=== PATIENT | male | born 1970 | race Caucasian/White ===

== ENCOUNTER 2019-07-26 09:42 | Outpatient (CLI) | payer BC, SELFPAY ==
--- NOTE | 2019-07-26 10:02 | CT_ITS ---
WS: [id number] CT HEAD NONCONTRAST HISTORY: HEADACHE W/SEXUAL ACTIVITY TECHNIQUE: Contiguous axial imaging performed through the brain in 2.5 mm imaging. Bone and soft tiss ue windows. Sagittal and coronal reformats reviewed. All CT scans at [facility] use at le ast one of these dose optimization techniques: automated exposure control; mA and/or kV adjustment pe r patient size (includes targeted exams where dose is matched to clinical indication); or iterative r econstruction. DLP: 872.54 mGy.cm COMPARISON: None available. No acute intracranial hemorrhage, midline shift or mass effect. No atrophy or prior infarcts or herniation. Ventricles: Normal size with no hydrocephalus. Paranasal sinuses: 1 complete opacification of the LEFT sphenoid sinus with extension into the dye tub tender ior LEFT ethmoid air cells. There is mild expansion of the sinus and thickening of the sinus wall sug gests this could be a mucocele. There is mixed density within the opacification. Mastoid air cells: Well pneumatized. Calvarium and scalp: Skull is intact with no soft tissue edema or swelling. Sclerosis and thickening of the posterior LEFT ethmoid air cells with increased fluid and soft tissue content. Cortical thickening is encroaching and narrowing the LEFT optic canal. Suspect encroachment upon the optic nerve sheath. CT/CT head wo con* [id number] IMPRESSION: 1. No acute intracranial hemorrhage or edema. 2. LEFT sphenoid sinus opacification with extension to the posterior LEFT ethm oid air cells. Bony expansion and cortical thickening suggests mucocele. Additi onal etiologies to consider are fungal sinusitis and inspissated material. 3. Cortical thickening involving the LEFT posterior ethmoid air cells and sphe noid sinus with encroaching upon the LEFT optical canal. There may be some encr oachment and impingement upon the optic nerve sheath and surrounding structures . Suggest follow-up with ENT. MRI orbits with and without contrast may be neces jannet for additional evaluation.
== END 2019-07-26 09:43 | disposition home or self-care (01) ==
LOC: RAD 09:51
PROVIDERS: PCP Nurse Practitioner Family; Visit Provider Nurse Practitioner Family
DX: G44.82 Headache associated with sexual activity (principal)
CPT/HCPCS: 70450

== ENCOUNTER 2019-08-05 08:09 | Outpatient (CLI) | payer BC, SELFPAY ==
--- NOTE | 2019-08-05 08:00 | MR_ITS ---
WS: [id number] MRI HEAD/ORBITS with and without CONTRAST. COMPARISON: CT head 07/26/2019 Multiplanar, multisequence imaging is performed with and without contrast. No acute infarcts or diffusion-weighted abnormality within the brain. No hemorrhage. No prior infarct s. No inferior displacement of cerebellar tonsils. Abnormal opacification of the LEFT sphenoid sinus with extension into the posterior LEFT ethmoid air cells and also the body of the clivus. There is expansion of the sphenoid cavity. The posterior LEFT ethmoid air cell projects to the LEFT and is causing narrowing of the inferior optic chiasm and infer ior orbital fissure. Mild mass effect upon the inferior rectus muscle. No soft tissue extension beyon d the sinus cavity. No intracranial extension. There is peripheral enhancement but the central portio n of the sinus does not enhance. There is also mild mucoperiosteal thickening of the frontal and ethmoid air cells. No air-fluid level s in the maxillary sinuses. Slight right-sided nasal septal deviation. MR/MR head orbits wo/w* [id number] IMPRESSION: 1. Mildly expansile mass centered in the LEFT sphenoid sinus with extension to the posterior LEFT ethmoid air cell. There may be slight encroachment upon the inferior optic chiasm and orbital fissure secondary to the bone remodeling. 2. Peripheral enhancement of the soft tissue filling the sphenoid sinus. Proba edwardo chronic inspissated sinusitis. Mucocele is thought to be less likely but sh ould also be considered.
== END 2019-08-05 08:10 | disposition home or self-care (01) ==
LOC: RADSHAW 08:09
PROVIDERS: PCP Nurse Practitioner Family; Visit Provider Nurse Practitioner Family
DX: R51 Headache (principal); R22.0 Localized swelling, mass and lump, head
CPT/HCPCS: 70543; 70553; A9579

== ENCOUNTER → 2021-03-29 08:04 | Outpatient (BNVA) | payer OTHER, SELFPAY | PROVIDERS: PCP Nurse Practitioner Family; Visit Provider Nurse Practitioner Family | DX: J02.0 Streptococcal pharyngitis (principal) | CPT/HCPCS: 87880 ==

== ENCOUNTER → 2021-07-20 16:36 | Outpatient (BNVA) | payer OTHER, SELFPAY | PROVIDERS: PCP Nurse Practitioner Family; Visit Provider Nurse Practitioner Family | DX: Z20.822 Contact with and (suspected) exposure to COVID-19 (principal) | CPT/HCPCS: 87635 ==

== ENCOUNTER 2021-12-08 17:32 | Emergency (ER) | payer OTHER, SELFPAY ==
[2021-12-08 18:35] VITALS: BP 178/93; PULSE 67; RESP 12; TEMP 36.7; O2SAT 98; BMI 27.2
--- NOTE | 2021-12-08 20:01 | W.ED.HA ---
HPI - Headache General: Chief Complaint: Headache Stated Complaint: Headache for 6 days Time Seen by Provider: 12/08/21 20:01 History of Present Illness: 51-year-old male patient comes in today for complaints of headache for 5 days. Patient reports the pain starts behind both of his eyes. Patient does have a history of sinusitis recurrent. Patient has been treated with azithromycin and a gram of Rocephin from [facility] medical provider. Patient appears nontoxic. No neurodeficits are noted. Patient appears in mild to no pain at this time. Patient does report that his headache seems better since arriving to the ER. Associated symptoms: Deny chest pain, fever(s) or rash Review of Systems Const: Denies: fever(s) Eyes: Reports: eye discomfort ENMT: Reports: sinus pain Card: Denies: chest pain Resp: Denies: dyspnea Musc: Denies: neck pain Skin/Breast: Denies: rash Neuro: Reports: headache(s) PFSH ED PFSH: Medical History GERD (gastroesophageal reflux disease) HTN (hypertension), benign Surgical History Hx of discectomy Social History Smoking and tobacco status: never smoked Household members: spouse Housing: House Marital status: Physical Exam Const: COMMON NORMALS: alert HENMT: COMMON NORMALS: normocephalic HEAD & SCALP: normocephalic NOSE: Nasal discharge present THROAT: posterior oropharynx normal Neck/C-Spine: COMMON NORMALS: full ROM and no meningeal signs Resp: COMMON NORMALS: clear to auscultation bilaterally AUSCULTATION: clear to auscultation bilaterally Cardio: COMMON NORMALS: regular rate and regular rhythm RATE: regular rate RHYTHM: regular rhythm Extremity: COMMON NORMALS: normal to inspection Neuro: JONEL COMA SCALE: document GCS findings Jonel coma scale eye opening: Spontaneous Jonel coma scale verbal response: Orientated [place] coma scale motor response: Obey commands Jonel coma scale total score: 15 SENSORIUM/ORIENTATION: Yes alert MENINGEAL SIGNS: Yes no meningeal signs SPEECH: speech normal GAIT: Yes Normal gait present Skin: COMMON NORMALS: no rashes or lesions noted GENERAL SKIN EXAM: no rashes or lesions noted Course Vital Signs: Vital signs: Vital Signs Temperature 98.1 F 12/08/21 18:35 Pulse Rate 68 12/08/21 20:38 Respiratory Rate 16 12/08/21 20:38 Blood Pressure 173/99 12/08/21 20:38 Pulse Oximetry 97 12/08/21 20:38 MDM - Headache Medical Decision Making 51-year-old male patient comes in today with sinus pain and headache for about 5 days. Patient's been seen by primary care and was given a gram of Rocephin and azithromycin to follow-up. Patient was also written for a Medrol pack. Patient came in today due to persistent headache with only 2 more days of azithromycin left. On exam patient appears mildly unwell. Patient has no focal neural deficits. Patient is alert and oriented. Patient's blood pressure is elevated. Differential diagnosis includes rhinosinusitis, intracranial mass, uncontrolled blood pressure. CT of the head and sinuses indicated a moderate sinusitis. Reviewed exam with patient recommended dose of dexamethasone IM. Patient can take Medrol Dosepak if he wants but he could try the dexamethasone first and see how he tolerates it along with Flonase nasal spray. Patient should complete his antibiotics and follow-up with primary care otherwise. Patient reported understanding. Lab Data Radiology Impressions Head CT 12/08/21 20:08 IMPRESSION: No acute intracranial abnormality. Bilateral sphenoid sinusitis, which may be chronic. Sinuses CT 12/08/21 20:08 IMPRESSION: Thww-tc-[id number] sinusitis, see above. Discharge Plan Discharge Patient Disposition: Home Clinical Impression: Sinusitis, acute Condition: Stable Prescriptions: New Flonase Allergy Relief 50 mcg/actuation spray,suspension 1 spray intranasal BID Qty: 16 0RF Rx Instructions: administer into each nostril No Action methylprednisolone [Medrol (Kevan)] 4 mg tablets,dose pack 4 mg PO DAILY Qty: 21 0RF pantoprazole 40 mg tablet,delayed release (DR/EC) See Rx Instructions .ROUTE .COMPLEX Qty: 90 0RF Dose Instruction: TAKE 1 TABLET BY MOUTH DAILY Rx Instructions: TAKE 1 TABLET BY MOUTH DAILY azithromycin [Zithromax Z-Kevan] 250 mg tablet See Rx Instructions PO .COMPLEX Qty: 6 0RF Rx Instructions: For 250 mg dose pack: take 500 mg today (day 1), then 250 mg for 4 days (days 2-5) PO Discharge Orders: Discharge ED (Routine); Ordered 12/08/21 Ordered By: Javier Pena Referrals: Andreia Batista FNP [Primary Care Provider] - Discharge Diet: Usual diet Discharge Activity: Increase activity as tolerated Patient Instructions: Sinusitis (ED) Activity Restrictions/Additional Instructions: Home and rest. Use Flonase 1 to 2 sprays each nostril twice a day until pain relief and discomfort. Drink plenty of water. Use acetaminophen and ibuprofen for pain. Follow-up with primary care for further instruction. Continue with antibiotics as directed. Return to ER for new concerns. Coding Level of Care Code ED Lab Coordinator for Chg Fwd Exam Comprehensive
--- NOTE | 2021-12-08 20:08 | CTR_ITS ---
PROCEDURE INFORMATION: Exam: CT Maxillofacial Without Contrast, Sinus Exam date and time: 12/08/2021 8:24 PM Age: 51 years old Clinical indication: Face pain; Patient HX: C/O facial pain with headache. History of sinusitis. ; Additional info: Sinus pain TECHNIQUE: Imaging protocol: CT Maxillofacial without contrast. Focus on the sinuses. Radiation optimization: All CT scans at this facility use at least one of these dose optimization techniques: automated exposure control; mA and/or kV adjustment per patient size (includes targeted exams where dose is matched to clinical indication); or iterative reconstruction. COMPARISON: CT head wo con* [id number] 12/08/2021 8:21 PM RADIATION DOSE METRICS: Total DLP (mGy-cm): 481.46 FINDINGS: Frontal sinuses: Normal. No air-fluid levels. Ethmoid air cells: Mild mucosal thickening is also seen in bilateral ethmoid sinuses. Sphenoid sinuses: Bilateral sphenoid sinusitis is noted, which may be chronic. Maxillary sinuses: Normal. No air-fluid levels. Ostiomeatal units are patent. Nasal cavity: Unremarkable. Orbital cavities: Orbits are normal. Globes are unremarkable. Bones/joints: Unremarkable. Soft tissues: Unremarkable. CT/CT sinus wo con* [id number] IMPRESSION: [id number]-du-mydevfwi sinusitis, see above.
--- NOTE | 2021-12-08 20:08 | CTR_ITS ---
PROCEDURE INFORMATION: Exam: CT Head Without Contrast Exam date and time: 12/08/2021 8:21 PM Age: 51 years old Clinical indication: Pain; Headache and other: Behind the eyes; Other: Behind eyes; Additional info: Persistent headache TECHNIQUE: Imaging protocol: Computed tomography of the head without contrast. Radiation optimization: All CT scans at this facility use at least one of these dose optimization techniques: automated exposure control; mA and/or kV adjustment per patient size (includes targeted exams where dose is matched to clinical indication); or iterative reconstruction. COMPARISON: MR head orbits wo/w* [id number] 08/05/2019 8:31 AM RADIATION DOSE METRICS: Total DLP (mGy-cm): 78.56 FINDINGS: Brain: Normal. No hemorrhage or evidence of acute infarction. No mass effect. Cerebral ventricles: No ventriculomegaly. Paranasal sinuses: Bilateral sphenoid sinusitis is noted, which may be chronic. Mastoid air cells: Visualized mastoid air cells are well aerated. Bones/joints: Unremarkable. No acute fracture. Soft tissues: Unremarkable. CT/CT head wo con* [id number] IMPRESSION: No acute intracranial abnormality. Bilateral sphenoid sinusitis, which may be chronic.
[2021-12-08 20:38] VITALS: BP 173/99; PULSE 68; RESP 16; O2SAT 97
[2021-12-08 21:21] VITALS: BP 178/105; PULSE 77; RESP 16; O2SAT 97
[2021-12-08] MEDS: dexamethasone 10 mg/mL INJ IM (21:21)
== END 2021-12-08 21:23 | disposition home or self-care (01) ==
PROVIDERS: Emergency Provider Nurse Practitioner Family; PCP Nurse Practitioner Family
DX: J01.90 Acute sinusitis, unspecified (principal); I10 Essential (primary) hypertension; Z20.822 Contact with and (suspected) exposure to COVID-19
CPT/HCPCS: 70450; 70486; 80053; 85025; 86140; 86618; 86666; 86757; 87400; 87635; 96372; 99284; J1100

== ENCOUNTER → 2023-01-23 16:21 | Outpatient (BNVA) | payer OTHER, SELFPAY | PROVIDERS: PCP Nurse Practitioner Family; Visit Provider Nurse Practitioner Family | DX: I10 Essential (primary) hypertension (principal); Z12.5 Encounter for screening for malignant neoplasm of prostate | CPT/HCPCS: 80053; 80061; G0103 ==

== ENCOUNTER 2023-06-16 17:09 | Emergency (ER) | payer OTHER, SELFPAY ==
--- NOTE | 2023-06-16 17:10 | XRR_ITS ---
PROCEDURE INFORMATION: Exam: XR Chest Exam date and time: 06/16/2023 6:43 PM Age: 53 years old Clinical indication: Other: Going down left arm mainly at wrist; Patient HX: C/O chest pain and going down left arm, mainly at wrist; Additional info: Cp TECHNIQUE: Imaging protocol: Radiologic exam of the chest. Views: 1 view. COMPARISON: No relevant prior studies available. FINDINGS: Lungs: There is no consolidation. Pleural spaces: There is no pleural effusion or pneumothorax. Heart/Mediastinum: Cardiomediastinal contours are unremarkable. Bones/joints: Bones are unremarkable. XR/XR chest 1V portable [id number] IMPRESSION: No acute findings.
[2023-06-16 17:18] VITALS: BP 173/94; PULSE 76; RESP 18; TEMP 36.6; O2SAT 97; BMI 27.2
--- NOTE | 2023-06-16 17:26 | ECG_ITS ---
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 Measurements Intervals [place] Rate: 75 P: 51 WA: 178 QRS: 79 QRSD: 93 T: -16 QT: 340 QTc: 381 Interpretive Statements SINUS RHYTHM ABNORMAL QRS-T ANGLE [QRS-T AXIS DIFFERENCE > 60] No previous ECG available for comparison Electronically Signed On 06-17-2023 13:32:55 HELIARC WELDER by Roderick Espinoza M.D. [email or web address] medical [id number] f
--- NOTE | 2023-06-16 17:37 | ED_ITS ---
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 Cy roughly an hour ago started having pains down his left arm. Triage did state he had chest pain he tells me he did not have any chest discomfort states he is having sharp pains in his arm mainly in his wrist. He stated 2 episodes of these pains that since resolved he denies any pain currently. Denies any shortness of breath nausea or diaphoresis. Associated symptoms: Deny abdominal pain, dyspnea, fever(s), nausea or vomiting Review of Systems 2 Const: Denies: fever(s), chills, body aches or change in appetite ENMT: Denies: throat pain or dental pain Card: Denies: chest pain Resp: Denies: dyspnea GI: Denies: abdominal pain, nausea, vomiting or diarrhea Musc: Reports: extremity pain; Denies: neck pain or back pain Skin/Breast: Denies: rash Neuro: Denies: headache(s) PFSH ED 2 PFSH: Medical History HTN (hypertension), benign GERD (gastroesophageal reflux disease) Surgical History Hx of discectomy Social History Smoking and tobacco/nicotine status: never used tobacco/nicotine Household members: spouse Housing: House Marital status: Physical Exam 2 Const: COMMON NORMALS: no acute distress, patient oriented x3 and healthy appearing HENMT: COMMON NORMALS: normocephalic and atraumatic HEAD & SCALP: n ormocephalic and atraumatic Neck/C-Spine: COMMON NORMALS: full ROM and supple Chest: COMMONS NORMALS: normal inspection of the chest Resp: COMMON NORMALS: normal respiratory effort, No retractions, No use of accessory muscles and clear to auscultation bilaterally AUSCULTATION: clear to auscultation bilaterally Cardio: COMMON NORMALS: regular rate, regular rhythm and No murmurs present (Cardio) RATE: regular rate RHYTHM: regular rhythm GI: COMMON NORMALS: Normal to inspection, nondistended, normoactive bowel sounds present, Soft to palpation, non-tender and no masses PALPATION: Yes Soft to palpation Extremity: COMMON NORMALS: normal to inspection and full ROM Neuro: COMMON NORMALS: patient oriented x3, moves all extremities and no focal motor deficits Psych: COMMON NORMALS: mental status grossly normal, Normal thought process present and cooperative THOUGHT PROCESS: Normal thought process present Skin: COMMON NORMALS: no rashes or lesions noted and no wounds GENERAL SKIN EXAM: no rashes or lesions noted Course 2 Vital Signs: Vital signs: Vital Signs Temperature 98 F 06/16/23 17:18 Pulse Rate 76 06/16/23 17:18 Respiratory Rate 18 06/16/23 17:18 Blood Pressure 173/94 06/16/23 17:18 Pulse Oximetry 97 06/16/23 17:18 Oxygen Delivery Me thod Room Air 06/16/23 17:18 MDM - Chest Pain Medical Decision Making Patient presents here with left arm pain he denies any chest pain to me it was sharp pains going down his arm been pain-free here EKGs and troponins are normal no signs of acute coronary syndrome I did inform he does need to follow-up with his PCP likely needs an outpatient stress test he is return if worsening he understands agrees to plan. Medical Records I reviewed the patient's medical records. Lab Data I reviewed the patient's lab results. 06/16/23 17:38 06/16/23 17:38 Laboratory Results WBC 7.05 10^3/uL (3.29-11.43) 06/16/23 17:38 RBC 5.58 10^6/uL (3.85-5.65) 06/16/23 17:38 Hgb 16.30 g/dL (11.27-16.99) 06/16/23 17:38 Hct 49.0 % (37-53) 06/16/23 17:38 MCV 87.8 fl (82-101) 06/16/23 17:38 MCH 29.2 pg (27-33) 06/16/23 17:38 MCHC 33.3 g/dL (30-55) 06/16/23 17:38 RDW 12.4 % (12.1-15.1) 06/16/23 17:38 Plt Count 267 10^3/cmm (157-399) 06/16/23 17:38 MPV 9.5 fL (7.4-10.4) 06/16/23 17:38 Neut % (Auto) 51.5 % 06/16/23 17:38 Lymph % (Auto) 38.2 % 06/16/23 17:38 [place] % (Auto) 8.5 % 06/16/23 17:38 Eos % (Auto) 1.1 % 06/16/23 17:38 Baso % (Auto) 0.6 % 06/16/23 17:38 Neut # (Auto) 3.63 10^3/uL (1.8-7.7) 06/16/23 17:38 Lymph # (Auto) 2.7 10^3/uL (0.8-4.8) 06/16/23 17:38 [place] # (Auto) 0.6 10^3/uL (0.2-0.9) 06/16/23 17:38 Eos # (Auto) 0.1 10^3/uL (0.0-0.8) 06/16/23 17:38 Baso # (Auto) 0.0 10^3/uL (0.0-0.1) 06/16/23 17:38 Nucleated RBC % (auto) 0 % 06/16/23 17:38 Nucleated RBCs # 0.0 /100WBC 06/16/23 17:38 Sodium 142 mmol/L (136-145) 06/16/23 17:38 Potassium 4.2 mmol/L (3.5-5.1) 06/16/23 17:38 Chloride 107 mmol/L (98-107) 06/16/23 17:38 Carbon Dioxide 25 mmol/L (22-29) 06/16/23 17:38 Anion Gap 14.2 (5-19) 06/16/23 17:38 BUN 15 mg/dL (6-20) 06/16/23 17:38 Creatinine 1.1 mg/dL (0.7-1.2) 06/16/23 17:38 GFR Calculation 70.6 mL/min (90-130) L 06/16/23 17:38 Glucose 95 mg/dL (65-115) 06/16/23 17:38 Calculated Osmolality 295 mOsm/kg (285-295) 06/16/23 17:38 Calcium 9.4 mg/dL (8.5-10.5) 06/16/23 17:38 Total Bilirubin 0.3 mg/dL (0.15-1.2) 06/16/23 17:38 AST 23 U/L (0-40) 06/16/23 17:38 ALT 41 U/L (0-41) 06/16/23 17:38 Alkaline Phosphatase 107 U/L (40-130) 06/16/23 17:38 Troponin T Baseline < 6 ng/L (0-15) 06/16/23 17:38 Troponin T 120 Minute 6.00 ng/L (0-15) 06/16/23 19:29 Delta Troponin T 0.77691 ABS# (0-10) 06/16/23 19:29 Total Protein 7.0 g/dL (6.6-8.7) 06/16/23 17:38 Albumin 4.4 g/dL (3.5-5.2) 06/16/23 17:38 Globulin 2.6 g/dL (1.3-4.6) 06/16/23 17:38 All radiology interpretation(s) finalized by discharge EKG Data EKG 1: I personally reviewed and interpreted this EKG as follows: EKG interpretation date: 06/16/23 EKG interpretation time: 17:16 Interpretation: nsr hr 75 no stemi abnormalities qrs 93 qtc 369 EKG 2: I personally reviewed and interpreted this EKG as follows: EKG interpretation date: 06/16/23 EKG interpretation time: 19:38 Interpretation: nsr hr [address] or twave abnormalities qrs 95 qtc 366 Discharge Plan Discharge Patient Disposition: Home Clinical Impression: Arm pain, left Condition: Stable Prescriptions: No Action simvastatin [Zocor] 10 mg tablet 10 mg PO DAILY Qty: 90 0RF pantoprazole 40 mg tablet,delayed release (DR/EC) See Rx Instructions .ROUTE .COMPLEX Qty: 90 1RF Dose Instruction: TAKE 1 TABLET BY MOUTH DAILY Rx Instructions: TAKE 1 TABLET BY MOUTH DAILY; Flonase Allergy Relief 50 mcg/actuation spray,suspension 1 spray intranasal BID Qty: 16 0RF Rx Instructions: administer into each nostril Discharge Orders: Discharge ED (Routine); Ordered 06/16/23 Ordered By: Chang Blas Referrals: Andreia Batista FNP [Primary Care Provider] - Discharge Diet: Advance as tolerated Discharge Activity: Resume usual activity Patient Instructions: Arm Pain (ED) Coding Level of Care Code ED Promotions Associate for Mariposa Andres
[2023-06-16 18:05] LABS: Basophils % 0.6 %; Eosinophils # 0.1 10^3/uL (0.0-0.8); Eosinophils % 1.1 %; Lymphocytes # 2.7 10^3/uL (0.8-4.8); Lymphocytes % 38.2 %; Mean Corpuscular HGB Conc 33.3 g/dL (30-55); Mean Corpuscular Hemoglobin 29.2 pg (27-33); Mean Corpuscular Volume 87.8 fl (82-101); Mean Platelet Volume 9.5 fL (7.4-10.4); Monocytes # 0.6 10^3/uL (0.2-0.9); Monocytes % 8.5 %; Neutrophils # 3.63 10^3/uL (1.8-7.7); Neutrophils % 51.5 %; Nucleated Red Blood Cells % 0 %; Platelet Count 267 10^3/cmm (157-399); Red Blood Count 5.58 10^6/uL (3.85-5.65); Red Cell Distribution Width 12.4 % (12.1-15.1); White Blood Count 7.05 10^3/uL (3.29-11.43)
[2023-06-16 18:32] LABS: Alanine Aminotransferase 41 U/L (0-41); Albumin Level 4.4 g/dL (3.5-5.2); Alkaline Phosphatase 107 U/L (40-130); Anion Gap 14.2 (5-19); Aspartate Amino Transferase 23 U/L (0-40); Blood Urea Nitrogen 15 mg/dL (6-20); Calcium 9.4 mg/dL (8.5-10.5); Carbon Dioxide 25 mmol/L (22-29); Chloride 107 mmol/L (98-107); Globulin 2.6 g/dL (1.3-4.6); Glomerular Filtration Rate 70.6 mL/min (90-130); Glucose 95 mg/dL (65-115); Osmolality Calculated 295 mOsm/kg (285-295); Potassium 4.2 mmol/L (3.5-5.1); Sodium 142 mmol/L (136-145); Total Bilirubin 0.3 mg/dL (0.15-1.2); Troponin(5th) Baseline < 6 ng/L (0-15)
--- NOTE | 2023-06-16 19:10 | ECG_ITS ---
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 Measurements Intervals [place] Rate: 56 P: 0 IA: 0 QRS: 49 QRSD: 98 T: 68 QT: 400 QTc: 387 Interpretive Statements SUPRAVENTRICULAR RHYTHM EARLY REPOLARIZATION [ST ELEVATION WITH NORMALLY INFLECTED T-WAVE] Compared to ECG 06/16/2023 17:16:46 Early repolarization now present Sinus rhythm no longer present Electronically Signed On 06-17-2023 13:35:34 VALIDATION TECHNICIAN by Roderick Espinoza M.D. [email or web address], [id number]
--- NOTE | 2023-06-16 19:38 | ECG_ITS ---
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 Measurements Intervals [place] Rate: 61 P: 47 NM: 211 QRS: 42 QRSD: 95 T: 61 QT: 362 QTc: 367 Interpretive Statements SINUS RHYTHM WITH FIRST DEGREE AV BLOCK Compared to ECG 06/16/2023 19:28:08 First degree AV block now present Atrial fibrillation no longer present Early repolarization no longer present Electronically Signed On 06-17-2023 13:35:14 INFORMATION SECURITY OFFICER by Roderick Espinoza M.D. [email or web address] medical specialty [email or web address] [id number]
[2023-06-16 19:57] LABS: Troponin 5 2HR Delta 0.00001 ABS# (0-10)
[2023-06-16 20:21] VITALS: BP 134/93; PULSE 72; O2SAT 96
== END 2023-06-16 20:22 | disposition home or self-care (01) ==
PROVIDERS: Emergency Provider Emergency Medicine; PCP Nurse Practitioner Family
DX: M79.602 Pain in left arm (principal); I10 Essential (primary) hypertension
CPT/HCPCS: 36415; 71045; 80053; 84484; 85025; 93005; 99285

== ENCOUNTER → 2025-01-29 15:24 | Outpatient (BNVA) | payer OTHER, SELFPAY | PROVIDERS: PCP Nurse Practitioner Family; Visit Provider Nurse Practitioner Family | DX: I10 Essential (primary) hypertension (principal) | CPT/HCPCS: 80053; 80061 ==

== ENCOUNTER 2025-02-05 12:38 | Outpatient (CLI) | payer OTHER, SELFPAY ==
--- NOTE | 2025-02-05 12:46 | ECG_ITS ---
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 Interpretive Statements Procedure: The patient was exercised by the Darin protocol. Vital signs and ECG findings: The baseline blood pressure was 135/78 with a heart rate of 74 bpm. The patient exercised for total of 8 minutes and 31 seconds achieving 10.2 METS and 87% of the maximal predicted heart rate with a heart rate of 147 bpm. In recovery, the patient's blood pressure was 146/86 with a heart rate of 98 bpm The baseline EKG???normal sinus rhythm, voltage criteria for LVH, rightward axis, inferolateral T wave inversions Stress EKG - no significant change in baseline ST - T waves CONCLUSION: 1. Exercise capacity was good for age. 2. Heart rate response was appropriate. 3. Blood pressure response was appropriate. 4. No symptoms of angina during exercise. 5. Electrocardiogram portion of the stress test without evidence of ischemia. 6. Nuclear scan will be documented separately. Electronically Signed On 02-13-2025 09:27:20 CDT by Alton Angulo M.D. [id number] [id number]
[2025-02-05 12:47] VITALS: BMI 26.9
[2025-02-05 13:25] VITALS: BP 146/86; PULSE 96
== END 2025-02-05 12:39 | disposition home or self-care (01) ==
LOC: CDL 12:40
PROVIDERS: PCP Nurse Practitioner Family; Visit Provider Nurse Practitioner Family
DX: R07.9 Chest pain, unspecified (principal)
CPT/HCPCS: 93017